=== PATIENT | male | born 1980 | race African-American/Black ===

== ENCOUNTER 2016-11-07 15:05 | Emergency (ER) | payer OTHER ==
[~2016-11-07] VITALS: Ht 182.9 cm; Wt 81.6 kg
[2016-11-07 15:32] VITALS: BP_SYST 158
[2016-11-07] MEDS ORDERED: LORazepam 2 MG/ML VIAL IVP ONE (17:15)
[2016-11-07] MEDS ORDERED: NACL 0.9% 1,000 ML IV ONE (17:15)
[2016-11-07 17:47] LABS: BASOPHILS % (AUTO) 0.3 % (0.0-2.0); EOSINOPHILS % (AUTO) 0.1 % (0.0-4.0); HEMATOCRIT 47.2 % (36-54); HEMOGLOBIN 15.2 g/dL (14.0-18.0); LYMPHOCYTES # (AUTO) 1.5 K/uL (1.0-5.5); LYMPHOCYTES % (AUTO) 16.3 % (20.5-51.5); MEAN CORPUSCULAR HEMOGLOBIN 29 pg (27-31); MEAN CORPUSCULAR HGB CONC 32 % (32-36); MEAN CORPUSCULAR VOLUME 88 fL (79.0-98.0); MONOCYTES # (AUTO) 0.5 K/uL (0.0-1.0); MONOCYTES % (AUTO) 5.6 % (1.7-9.3); NEUTROPHILS % (AUTO) 77.7 % (40.0-70.0); PLATELET COUNT (AUTO) 377 K/uL (130-430); RED BLOOD CELL COUNT(AUTO) 5.34 MIL/uL (4.2-6.2); RED CELL DISTRIBUTION WIDTH 12.4 % (9.0-15.0)
[2016-11-07 17:53] LABS: CALCIUM 9.1 mg/dL (8.4-11.0); CREATININE 1.24 mg/dL (0.55-1.30)
[2016-11-07 18:09] LABS: ALBUMIN 4.5 g/dL (3.4-4.8); THYROID STIMULATING HORMONE 2.43 uIu/mL (0.34-4.82); TOTAL BILIRUBIN 0.9 mg/dL (0.0-1.0); TOTAL PROTEIN, SERUM 8.6 g/dL (6.4-8.3)
[2016-11-07] MEDS ORDERED: LORazepam 2 MG/ML VIAL (FOR ER USE) IVP ONE (18:15)
[2016-11-07 19:41] VITALS: BP_SYST 142
== END 2016-11-07 19:41 | disposition home or self-care (01) ==
LOC: SED 15:06
DX: F41.9 Anxiety disorder, unspecified (principal); F22 Delusional disorders; F15.90 Other stimulant use, unspecified, uncomplicated; F17.210 Nicotine dependence, cigarettes, uncomplicated; Z71.6 Tobacco abuse counseling
CPT/HCPCS: 36415; 80053; 84443; 85025; 96361; 96374; 99284; J2060; J7030

== ENCOUNTER 2016-11-07 21:36 | Emergency (ER) | payer OTHER ==
[~2016-11-07] VITALS: Ht 185.4 cm; Wt 81.6 kg
[2016-11-07 21:55] VITALS: BP_SYST 164
[2016-11-07] MEDS ORDERED: ALPRAZolam 0.25 MG TABLET PO ONE (22:00)
== END 2016-11-07 22:30 | disposition home or self-care (01) ==
LOC: SED 21:36
DX: F41.9 Anxiety disorder, unspecified (principal); F15.10 Other stimulant abuse, uncomplicated; F17.210 Nicotine dependence, cigarettes, uncomplicated; F22 Delusional disorders; Z71.6 Tobacco abuse counseling
CPT/HCPCS: 99284